=== PATIENT | female | born 1975 | race Caucasian/White ===

== ENCOUNTER 2023-03-16 12:19 | Emergency (ER) | payer BC ==
[~2023-03-16] VITALS: Ht 165.1 cm
[~2023-03-16 12:19] MED LIST: PHENERGAN25 M1 PO; PROZAC40 MG PO; ULTRAM50 MG PO; ZANTAC150 MG PO
== END 2023-03-16 15:20 | disposition left against medical advice (07) ==
LOC: ED 12:19
DX: R10.10 Upper abdominal pain, unspecified (principal); M54.9 Dorsalgia, unspecified; R11.0 Nausea; Z88.2 Allergy status to sulfonamides; Z53.21 Procedure and treatment not carried out due to patient leaving prior to being seen by health care provider

== ENCOUNTER 2023-10-10 18:25 | Emergency (ER) | payer BC ==
[~2023-10-10] VITALS: Ht 165.1 cm; Wt 117.9 kg
[~2023-10-10 18:25] MED LIST changes: +AMOX-CLAV 875-1 EACH PO; +HYDROCODONE-AC1 EAC1 PO
[2023-10-10 19:51] LABS: BASO # 0.1 10*3/uL (0.0-0.1); BASO % 0.5 % (0.0-1.0); EOS # 0.1 10*3/uL (0.0-0.4); EOS % 1.3 % (1.0-4.0); HEMATOCRIT 46.2 % (37.0-47.0); LYMPH # 1.2 10*3/uL (1.3-4.4); LYMPH % 12.9 % (27.0-41.0); MEAN CELL VOLUME 93.5 fl (81.0-99.0); MEAN CORPUSCULAR HGB 30.6 pg (27.0-31.0); MEAN CORPUSCULAR HGB CONC 32.7 g/dl (33.0-37.0); MEAN PLATELET VOLUME 10.7 fl (9.6-12.3); MONO # 0.8 10*3/uL (0.1-1.0); MONO % 8.5 % (3.0-9.0); NEUT # 7.1 10*3/uL (2.3-7.9); PLATELET COUNT AUTOMATED 361 10*3/uL (130-400); RED BLOOD COUNT 4.94 10*6/uL (4.10-5.10); RED CELL DISTRI WIDTH 13.6 % (0-14.5); WHITE BLOOD COUNT 9.3 10*3/uL (4.8-10.8)
[2023-10-10 19:56] LABS: BILIRUBIN 1+ (Negative); BLOOD Trace-Intact (Negative); CLARITY Cloudy (Clear); COLOR Dark Yellow (Yellow); GLUCOSE Negative (Negative); KETONE 2+ (Negative); LEUKO ESTERASE 1+ (Negative); NITRITE Negative (Negative); SPECIFIC GRAVITY >= 1.030 (1.001-1.030)
[2023-10-10 20:05] LABS: BUN 10 mg/dl (9-23); CHLORIDE 108 mmol/L (98-107); POTASSIUM 3.8 mmol/L (3.4-5.1)
[2023-10-10 20:07] LABS: BACTERIA 2+; MUCOUS 2+
[2023-10-10] MEDS ORDERED: CIPRO500 MG PO (20:39)
[2023-10-10] MEDS ORDERED: Ciprofloxacin Hydrochloride 500 MG TAB PO ONE (20:40)
== END 2023-10-10 20:45 | disposition home or self-care (01) ==
LOC: ED 18:25
PROVIDERS: Nurse Practitioner Family
DX: N39.0 Urinary tract infection, site not specified (principal); K08.89 Other specified disorders of teeth and supporting structures; F32.A Depression, unspecified; F17.210 Nicotine dependence, cigarettes, uncomplicated; Z88.2 Allergy status to sulfonamides; Z90.49 Acquired absence of other specified parts of digestive tract